=== PATIENT | male | born 1980 | race Caucasian/White ===

== ENCOUNTER 2024-04-07 13:31 | Emergency (ER) | payer SELFPAY ==
[2024-04-07 13:34] VITALS: RESP 18; TEMP 98.6; BMI 30.7
[2024-04-07 14:54] LABS: BASO % 0.3 % (0-2.0); EOS % 1.4 % (0-4.5); HEMATOCRIT 41.4 % (35.4-49); LYMPH % 16.1 % (8-40); MCH 29.3 pg (25.7-33.7); MCHC 33.8 g/dl (32.0-35.9); MEAN CELL VOLUME 86.7 fl (80-96); MEAN PLT VOLUME 7.8 fl (7.5-11.1); MONO % 6.8 % (3.8-10.2); NEUT % 75.4 % (42.8-82.8); PLATELET COUNT 325 10^3/uL (134-434); RBC 4.78 M/mm3 (4.00-5.60); RDW 14.6 % (11.9-15.9); WHITE BLOOD COUNT 7.5 K/mm3 (4.0-10.0)
[2024-04-07 15:21] LABS: POTASSIUM 4.2 mmol/L (3.5-5.1)
[2024-04-07 15:23] LABS: ALBUMIN 3.5 g/dl (3.4-5.0); BLOOD UREA NITROGEN 10.2 mg/dL (7-18); CALCIUM 8.9 mg/dL (8.5-10.1)
[2024-04-07 15:26] LABS: CREATININE 0.9 mg/dL (0.55-1.3)
[2024-04-07 15:31] LABS: BILIRUBIN,TOTAL 0.3 mg/dL (0.2-1)
[2024-04-07] MEDS ORDERED: CLINDAMYCIN 600MG PREMIX IVPB 600 MG/50 ML BAG IVPB ONE (18:52)
[2024-04-07] MEDS: CLINDAMYCIN 600MG PREMIX IVPB 600 MG/50 ML BAG IVPB ONE (18:56)
[2024-04-07 19:20] VITALS: BP 155/84; PULSE 84
== END 2024-04-07 19:20 | disposition home or self-care (01) ==
LOC: JERFT 13:31
DX: L03.116 Cellulitis of left lower limb (principal)
CPT/HCPCS: 36415; 73701-TC-RT; 80053; 85025; 87070; 87186; 87205; 99285-25; Q9967